=== PATIENT | female | born 1995 | race American Indian/Alaskan Native ===

== ENCOUNTER 2016-03-16 14:41 | Emergency (ER) | payer SELFPAY ==
[2016-03-16 14:49] VITALS: BP 136/87
--- NOTE | 2016-03-16 15:20 | Emergency Department Report ---
ED ENT HPI - General Chief complaint: Earache Stated complaint: EAR INFECTION Time Seen by Provider: 03/16/16 15:16 Source: patient Mode of arrival: Ambulatory Limitations: No Limitations - History of Present Illness Initial comments: Pt c/o ear pain x 3 days. No fever or other URI sx. MD complaint: ear pain -: Gradual, days(s) (3) Location: R ear, L ear Severity: mild Quality: aching Consistency: constant Improves with: none Worsens with: none Associated Symptoms: denies: fever, cough - Related Data Previous Rx's Medication Instructions Recorded Last Taken Type Neomy/Polymyx B/Hc Otic Susp 4 drops AU TID #1 bottle 03/16/16 Unknown Rx [Cortisporin (Otic) Susp] ED Dental HPI - General Chief complaint: Earache Stated complaint: EAR INFECTION Time Seen by Provider: 03/16/16 15:16 Source: patient Mode of arrival: Ambulatory Limitations: No Limitations - Related Data Previous Rx's Medication Instructions Recorded Last Taken Type Neomy/Polymyx B/Hc Otic Susp 4 drops AU TID #1 bottle 03/16/16 Unknown Rx [Cortisporin (Otic) Susp] ED Review of Systems ROS: Stated complaint: EAR INFECTION Other details as noted in HPI Comment: All other systems reviewed and negative Constitutional: denies: chills, fever Eyes: denies: eye pain, eye discharge, vision change ENT: ear pain. denies: throat pain Respiratory: denies: cough, shortness of breath, wheezing Cardiovascular: denies: chest pain, palpitations Endocrine: no symptoms reported Gastrointestinal: denies: abdominal pain, nausea, diarrhea Genitourinary: denies: urgency, dysuria, discharge Musculoskeletal: denies: back pain, joint swelling, arthralgia Skin: denies: rash, lesions Neurological: denies: headache, weakness, paresthesias Psychiatric: denies: anxiety, depression Hematological/Lymphatic: denies: easy bleeding, easy bruising ED Past Medical Hx - Past Medical History Hx Asthma: Yes - Surgical History Past Surgical History?: No - Social History Smoking Status: Never Smoker Substance Use Type: None - Medications Home Medications: Home Medications Medication Instructions Recorded Confirmed Last Taken Type Neomy/Polymyx B/Hc Otic Susp 4 drops AU TID #1 bottle 03/16/16 Unknown Rx [Cortisporin (Otic) Susp] ED Physical Exam - General Limitations: No Limitations General appearance: alert, in no apparent distress - Head Head exam: Present: atraumatic, normocephalic - Eye Eye exam: Present: normal appearance, PERRL, EOMI - ENT ENT exam: Present: normal orophraynx, mucous membranes moist, TM's normal bilaterally, other (bilateral otitis externa. No mastoid tenderness. ) - Neck Neck exam: Present: normal inspection - Respiratory Respiratory exam: Present: normal lung sounds bilaterally. Absent: respiratory distress - Cardiovascular Cardiovascular Exam: Present: regular rate, normal rhythm. Absent: systolic murmur, diastolic murmur, rubs, gallop - GI/Abdominal GI/Abdominal exam: Present: soft, normal bowel sounds - Extremities Exam Extremities exam: Present: normal inspection - Back Exam Back exam: Present: normal inspection - Neurological Exam Neurological exam: Present: alert, oriented X3 - Psychiatric Psychiatric exam: Present: normal affect, normal mood - Skin Skin exam: Present: warm, dry, intact, normal color. Absent: rash ED Course Vital Signs 03/16/16 14:46 Temperature 99.5 F Pulse Rate 97 H Respiratory 18 Rate Blood Pressure 136/87 O2 Sat by Pulse 98 Oximetry - Reevaluation(s) Reevaluation #1: 03/16/16 15:20 NAD, stable for d/c. ED Medical Decision Making - Medical Decision Making Will give rx for Cortisporin for OE. Follow with PCP. - Differential Diagnosis OE, OM Critical care attestation.: If time is entered above; I have spent that time in minutes in the direct care of this critically ill patient, excluding procedure time. ED Disposition Clinical Impression: Otitis externa Qualifiers: Otitis externa type: unspecified type Laterality: bilateral Chronicity: acute Qualified Code(s): H60.503 - Unspecified acute noninfective otitis externa, bilateral Disposition: DISCHARGED TO HOME OR SELFCARE Is pt being admited?: No Condition: Good Instructions: Otitis Externa (ED) Prescriptions: Neomy/Polymyx B/Hc Otic Susp [Cortisporin (Otic) Susp] 4 drops AU TID #1 bottle Referrals: YULIYA PRYOR MD [Staff Physician] - 3-5 Days Time of Disposition: 15:22
== END 2016-03-16 15:35 | disposition home or self-care (01) ==
LOC: ED 14:41
DX: H60.503 Unspecified acute noninfective otitis externa, bilateral (principal); J45.909 Unspecified asthma, uncomplicated
CPT/HCPCS: 99281

== ENCOUNTER 2021-08-02 10:12 | Emergency (ER) | payer SELFPAY ==
[2021-08-02] MEDS ORDERED: dexAMETHasone 4 MG/ML VIAL IM ONE (13:25)
[2021-08-02] MEDS ORDERED: IBUPROFEN 800 MG TAB PO ONE (13:25)
[2021-08-02] MEDS ORDERED: CYCLOBENZAPRINE 10 MG TAB PO ONE (13:25)
--- NOTE | 2021-08-02 13:25 | Emergency Department Report ---
ED Back Pain/Injury HPI - General Chief Complaint: Back Pain/Injury Stated Complaint: BACK PAIN Time Seen by Provider: 08/02/21 13:11 Source: patient Limitations: No Limitations - History of Present Illness Initial Comments: Patient is a 26-year-old female that comes to the emergency room with lumbar back pain. She states that this has occurred since she was lifting things at work. She denies the pain waking her at night. She denies fever or chills. Denies any dysuria, vaginal discharge or abnormal vaginal bleeding. Denies nausea vomiting diarrhea. Has no other systemic complaints. Patient is ambulatory, nontoxic [id number] on arrival to ER MD Complaint: back pain -: Gradual, days(s) Similar Symptoms Previously: No Place: work Radiation: none Severity scale (0 -10): 3 Quality: aching Consistency: intermittent Improves With: immobilization Worsens With: movement Associated Symptoms: denies other symptoms - Related Data Previous Rx's Medication Instructions Recorded Last Taken Type Cyclobenzaprine [Flexeril] 10 mg PO TID PRN #10 tablet 08/02/21 Unknown Rx Ibuprofen [Motrin] 800 mg PO Q8HR PRN #30 tablet 08/02/21 Unknown Rx Allergies Allergy/AdvReac Type Severity Reaction Status Date / Time No Known Allergies Allergy Verified 08/02/21 13:41 ED Review of Systems ROS: Stated complaint: BACK PAIN Other details as noted in HPI Comment: All other systems reviewed and negative ED Past Medical Hx - Past Medical History Previous Medical History?: Yes Hx Asthma: Yes - Surgical History Past Surgical History?: No - Family History Family history: no significant - Social History Smoking Status: Never Smoker Substance Use Type: None - Medications Home Medications: Home Medications Medication Instructions Recorded Confirmed Last Taken Type Cyclobenzaprine [Flexeril] 10 mg PO TID PRN #10 tablet 08/02/21 Unknown Rx Ibuprofen [Motrin] 800 mg PO Q8HR PRN #30 tablet 08/02/21 Unknown Rx ED Physical Exam - General Limitations: No Limitations General appearance: alert, in no apparent distress - Head Head exam: Present: atraumatic, normocephalic - Eye Eye exam: Present: normal appearance - ENT ENT exam: Present: mucous membranes moist - Neck Neck exam: Present: normal inspection - Respiratory Respiratory exam: Present: normal lung sounds bilaterally. Absent: respiratory distress - Cardiovascular Cardiovascular Exam: Present: regular rate, normal rhythm. Absent: systolic murmur, diastolic murmur, rubs, gallop - GI/Abdominal GI/Abdominal exam: Present: soft, normal bowel sounds - Extremities Exam Extremities exam: Present: normal inspection - Back Exam Back exam: Present: normal inspection - Neurological Exam Neurological exam: Present: alert, oriented X3 - Psychiatric Psychiatric exam: Present: normal affect, normal mood - Skin Skin exam: Present: warm, dry, intact, normal color. Absent: rash ED Course Vital Signs 08/02/21 08/02/21 11:03 15:44 Temperature 98.6 F 98.6 F Pulse Rate 76 69 Respiratory 16 16 Rate Blood Pressure 113/74 Blood Pressure 121/77 [Right] O2 Sat by Pulse 97 100 Oximetry ED Medical Decision Making - Medical Decision Making Vital Signs 08/02/21 08/02/21 11:03 15:44 Temperature 98.6 F 98.6 F Pulse Rate 76 69 Respiratory 16 16 Rate Blood Pressure 113/74 Blood Pressure 121/77 [Right] O2 Sat by Pulse 97 100 Oximetry I am able to reproduce pain with movement. Patient medicated in the emergency room with relief. I discussed proper body mechanics with patient. Patient being discharged home with discharge plan of care including diet, activ ity, medications and follow-up. She verbalizes understanding of plan of care. On discharge patient ambulatory, remains neurologically intact in no acute distress. - Differential Diagnosis Musculoskeletal strain Critical care attestation.: If time is entered above; I have spent that time in minutes in the direct care of this critically ill patient, excluding procedure time. ED Disposition Clinical Impression: Lumbar strain Qualifiers: Encounter type: initial encounter Qualified Code(s): S39.012A - Strain of muscle, fascia and tendon of lower back, initial encounter Disposition: HOME / SELF CARE / HOMELESS Is pt being admited?: No Does the pt Need Aspirin: No Condition: Stable Instructions: Lumbar Sprain Additional Instructions: meds as ordered good body mechanics follow up with pcp if pain persists warm compresses will help Prescriptions: Cyclobenzaprine [Flexeril] 10 mg PO TID PRN #10 tablet PRN Reason: Muscle Spasm Ibuprofen [Motrin] 800 mg PO Q8HR PRN #30 tablet PRN Reason: Pain, Moderate (4-6) Referrals: MARY MOTA MD [Primary Care Provider] - 3-5 Days Forms: Work/School Release Form(ED) Time of Disposition: 14:49
[2021-08-02 15:45] VITALS: BP 121/77
== END 2021-08-02 15:44 | disposition home or self-care (01) ==
LOC: ED 10:12
DX: S39.012A Strain of muscle, fascia and tendon of lower back, initial encounter (principal); J45.909 Unspecified asthma, uncomplicated; Z79.899 Other long term (current) drug therapy; X50.0XXA Overexertion from strenuous movement or load, initial encounter; Y93.89 Activity, other specified; Y92.89 Other specified places as the place of occurrence of the external cause; Y99.0 Civilian activity done for income or pay
CPT/HCPCS: 96372; 99282; J1100